=== PATIENT | male | born 1975 | race African-American/Black ===

== ENCOUNTER → 2017-09-04 | Outpatient (CLI) | payer BC, OTHER | LOC: RAD 11:41 | DX: M54.5 Low back pain (principal) ==

== ENCOUNTER 2019-02-02 12:06 | Emergency (ER) | payer BC, OTHER ==
[~2019-02-02] VITALS: Ht 182.9 cm; Wt 68.0 kg
[2019-02-02] MEDS ORDERED: NORCO 10-325 T1 EACH PO (15:13)
[2019-02-02] MEDS ORDERED: MEDROLDOSEPACK PO (15:13)
[2019-02-02] MEDS ORDERED: ZANAFLEX2 MG PO (15:13)
[2019-02-02 15:30] VITALS: BP 118/70
== END 2019-02-02 15:30 | disposition home or self-care (01) ==
LOC: ER 12:06
DX: M51.26 Other intervertebral disc displacement, lumbar region (principal); F17.210 Nicotine dependence, cigarettes, uncomplicated; W10.8XXA Fall (on) (from) other stairs and steps, initial encounter; Y93.89 Activity, other specified; Y92.89 Other specified places as the place of occurrence of the external cause; Y99.8 Other external cause status